=== PATIENT | male | born 1985 | race African-American/Black ===

== ENCOUNTER 2025-05-29 17:40 | Emergency (ER) | payer MEDICARE, MEDICAID ==
[~2025-05-29] VITALS: Ht 172.7 cm; Wt 80.0 kg
[2025-05-29 17:42] VITALS: BP 168/112; PULSE 74; RESP 20; O2SAT 98
--- NOTE | 2025-05-29 18:28 | ED.PDOC ---
Back pain HPI HPI Comments 39-year-old home dialysis male patient presents to the ED chief complaint right- sided rib pain. Patient reports pain started about two nights ago while he was given himself home dialysis had sudden onset of right-sided rib pain. Describes pain as sharp worse with deep breaths. States pain is 8/10 on pain scale. Tried [id number] Tylenol with little relief. Patient states stage IV chronic kidney disease with dialysis every night last dialysis was last night states the pain gotten worse. Patient is febrile on exam at 100.1. He does note some shortness of breath. Denies nausea, vomiting, diarrhea, cough, or difficulty breathing. Chief Complaint: Rib Pain Time Seen by MD: 18:04 Primary Care Provider: DARELL Reviewed Notes: Nurses Notes, Medications, Allergies Allergies: Coded Allergies: NO KNOWN ALLERGIES (Unverified , 01/24/16) Information Source: Patient Past Medical History PAST MEDICAL HISTORY: CKF, Denies Past Medical History (Other): Peritoneal dialysis at home Surgical History: Denies all surgeries Family History Family History: Reviewed,noncontributory to illness, Unknown Social History Smoker: Cigarettes, Less Than 1 Pack/Day Alcohol: Occasionally Drugs: Denies Drug Use Lives In: Home Constitutional: denies: chills, diaphoresis, fatigue, fever, malaise, sweats, weakness, others EENTM: denies: blurred vision, double vision, ear bleeding, ear discharge, ear drainage, ear pain, ear ringing, eye pain, eye redness, hearing loss, mouth pain, mouth swelling, nasal discharge, nose bleeding, nose congestion, nose pain, photophobia, tearing, throat pain, throat swelling, voice changes, others Respiratory: denies: cough, hemoptysis, orthopnea, SOB at rest, shortness of breath, SOB with excertion, stridor, wheezing, others Cardiovascular: reports: chest pain; denies: dizzy spells, diaphoresis, Dyspnea on exertion, edema, irregular heart beat, left arm pain, lightheadedness, p alpitations, PND, syncope, others Gastrointestinal: denies: abdomen distended, abdominal pain, blood streaked bowels, constipated, diarrhea, dysphagia, difficulty swallowing, hematemesis, melena, nausea, poor appetite, poor fluid intake, rectal bleeding, rectal pain, vomiting, others Genitourinary: denies: burning, dysuria, flank pain, frequency, hematuria, incontinence, penile discharge, penile sore, pain, testicle pain, testicle swelling, urgency, others Neurological: denies: dizziness, fainting, headache, left sided numbness, left sided weakness, numbness, paresthesia, pre-existing deficit, right sided numbness, right sided weakness, seizure, speech problems, tingling, tremors, weakness, others Musculoskeletal: denies: back pain, gout, joint pain, joint swelling, muscle pain, muscle stiffness, neck pain, others Integumetry: denies: bruises, change in color, change in hair/nails, dryness, laceration, lesions, lumps, rash, wounds, others Allergic/Immunocompromised: denies: Difficulty Healing, Frequent Infections, Hives, Itching, others Hematologic/Lymphatic: denies: anemia, blood clots, easy bleeding, easy b ruising, swollen glands, others Endocrine: denies: excessive hunger, excessive sweating, excessive thirst, excessive urination, flushing, intolerance to cold, intolerance to heat, unexplained weight gain, unexplained weight loss, others Psychiatric: denies: anxiety, bipolar disorder, depression, hopeless, panic disorder, schizophrenia, sleepless, suicidal, others Physical Exam General Appearance: No Apparent Distress, Normal HEENT: Pharynx Normal Neck: Full Range of Motion Respiratory: Chest Non-Tender, Lungs Clear, No Respiratory Distress, Normal Breath Sounds Cardiovascular: No Edema, No JVD, No Murmur, No Gallop, Normal Peripheral Pulses, Regular Rate/Rhythm Breast Exam: Deferred Gastrointestinal: No Organomegaly, Non Tender, No Pulsatile Mass, Normal Bowel Sounds, Soft Genitalia: Deferred Pelvic: Deferred Rectal: Deferred Extremities: Normal inspection, Normal range of motion, No pedal edema Musculoskeletal : Apperance: Normal Neurologic: Alert, No Motor Deficits, Normal Affect, Normal Mood, No Sensory Deficits Cerebellar Function: Normal Reflexes: Normal, NOT DONE Skin: Dry, Normal Color, Warm Lymphatic: No Adenopathy Was a procedure done? Was a procedure done?: No Back Pain Differential Dx Differential Diagnosis: Fracture, Musculoskeletal Pain X-Ray, Labs, Meds, VS Vital Signs Date Time Temp Pulse Resp B/P (MAP) Pulse Ox O2 Delivery O2 Flow Rate FiO2 05/29/25 19:51 99.4 05/29/25 18:40 100.0 05/29/25 17:42 100.0 74 20 168/116 98 100.0 168/112 Current Medications Medications (Trade) Dose Ordered Sig/Mai Route Start Time Stop Time Status Last Admin Acetaminophen/ Hydrocodone Bitart ([place] 10/325MG Tab) 1 tab ONCE ONCE PO 05/29/25 18:45 05/29/25 18:46 DC 05/29/25 18:40 Acetaminophen (Tylenol Tablet Or Capsule) 500 mg ONCE ONCE PO 05/29/25 18:45 05/29/25 18:46 DC 05/29/25 18:40 X-Ray, Labs, Meds, VS Comment MARGOT RODRIGUEZ states they want to leave the Emergency Department Against Medical Advice (AMA). Patient encouraged to stay for further treatment/stabilization. Patient advised of the risks of leaving AMA. Patient verbalized understanding. Patient encouraged to return to the ER if symptoms do not improve or worsen. Pt seen ambulating out of ED lobby with steady gait. Time of 1ST Reevaluation: 18:27 Reevaluation 1ST: Unchanged Time of 2ND Reevaluation: 20:21 Reevaluation 2ND: Unchanged Patient Education/Counseling: Diagnosis, Treatment, Prognosis, Need For Follow Up Family Education/Counseling: No Family Present SEPSIS Sepsis Screen Physician Orders Chest Without Contrast (05/29/25 18:33) Heplock Iv (05/29/25 ) Vital Signs Date Time Temp Pulse Resp B/P (MAP) Pulse Ox O2 Delivery O2 Flow Rate FiO2 05/29/25 19:51 99.4 05/29/25 18:40 100.0 05/29/25 17:42 100.0 74 20 168/116 98 100.0 168/112 Medications Medications Dose Ordered Sig/Mai Route Start Time Stop Time Status Last Admin Dose Admin Acetaminophen 500 mg ONCE ONCE PO 05/29/25 18:45 05/29/25 18:46 DC 05/29/25 18:40 Acetaminophen/ Hydrocodone Bitart 1 tab ONCE ONCE PO 05/29/25 18:45 05/29/25 18:46 DC 05/29/25 18:40 Departure 1 Departure Time of Disposition: 20:45 Impression: Primary Impression: Pleural effusion on right Additional Impression: Chronic renal disease, stage IV Disposition: 07 LEFT AGAINST MEDICAL ADVICE Condition: Stable Discharged With: Self Critical Care Note Critical Care Time?: No Stability Stability form required: DAYA Hill LICENSED PRACTICAL NURSE May 29, 2025 18:28
[2025-05-29] MEDS: HYDROcodone-ACET 10/325MG TAB PO ONE (18:40)
[2025-05-29] MEDS: ACETAMINOPHEN 500 MG TAB or CAP PO ONE (18:40)
[2025-05-29 19:51] VITALS: TEMP 99.4
--- NOTE | 2025-05-29 20:01 | DVH ---
EXAM: CT CHEST WITHOUT CONTRAST History: RIGHT SIDED CHEST PAIN Comparison Study: None TECHNIQUE: Multidetector CT of the chest was performed. Imaging was performed without IV contrast. Ax ial, coronal, and sagittal multiplanar reformats were obtained from the axial data set by the technol ogbg. Radiation Dose : CTDI vol 8.04 mGy, DLP 294.03 mGy*cm. Findings: Lungs /pleura: There is a moderate right pleural effusion with adjacent opacity. Heart/Great vessels: The heart is borderline in size. No pericardial effusion. The aorta is unremarka ble. Mediastinum: Unremarkable. Soft tissues/Bones: Unremarkable Upper abdomen: Incompletely assessed left renal calculus. Impression: 1. Moderate right pleural effusion with adjacent opacity, likely atelectasis. 2. Additional findings as detailed.
[2025-05-29] MEDS ORDERED: SODIUM CHLORIDE 0.9% 1,000 ML IV ONE (20:30)
[2025-05-29] MEDS ORDERED: cefTRIAXone 1GM/50ML D5W 50 ML IV ONE (20:30)
[2025-05-29] MEDS ORDERED: MORPHINE SULFATE INJ 2 MG/ml SYRG IV ONE (20:45)
== END 2025-05-29 20:49 | disposition left against medical advice (07) ==
LOC: ER 17:40
DX: J90 Pleural effusion, not elsewhere classified (principal); N18.6 End stage renal disease; F17.210 Nicotine dependence, cigarettes, uncomplicated; Z99.2 Dependence on renal dialysis
CPT/HCPCS: 71250